=== PATIENT | female | born 1945 | race Caucasian/White ===

== ENCOUNTER 2016-09-20 23:22 | Observation (INO) | payer OTHER, BC ==
[~2016-09-20] VITALS: Ht 162.6 cm; Wt 56.8 kg
[~2016-09-20 23:22] MED LIST: ASPIR-LOW81 MG PO; ATIVAN0.5 MG PO; CARDIZEM CD120 MG PO; CLOPIDOGREL75 MG PO; COZAAR50 MG PO; FUROSEMIDE20 MG PO; KLOR-CON 1010 MEQ PO; LEVAQUIN500 MG PO; PEPCID20 MG PO; PRAVASTATIN SOD40 MG PO; PREDNISONE10 MG PO; PREDNISONE20 MG PO; PREVACID30 MG PO; PROVENTIL HFA6.7 GM IH; ROXICODONE5 MG PO; SPIRIVA1 INHALATI IH; SYMBICORT60 INHALAT IH; TOPICORT 0.25%60 GM PO; TYLENOL EXTRA500 MG PO; ZYRTEC10 M3 PO
[2016-09-21 00:07] LABS: HEMATOCRIT 35.4 % (36.0-46.0); MCH 28.3 PG (29.0-34.0); MCHC 31.4 G/DL (30.0-36.0); MCV 90.3 FL (83-99); MEAN PLAT.VOLUME 9.3 uM^3 (9.5-12.4); PLATELET COUNT 255 K/uL (156-360); RBC DIS.WIDTH-CV 12.4 % (11.8-14.6); RBC DIS.WIDTH-SD 40.4 % (39-53); RED BLOOD COUNT 3.92 M/uL (3.80-5.20); WHITE BLOOD COUNT 6.6 K/uL (4.1-10.2)
[2016-09-21 00:28] LABS: CHLORIDE 98 mEq/L (99-109); POTASSIUM 3.5 mEq/L (3.7-5.4); SODIUM 138 mEq/L (136-147)
[2016-09-21 00:30] LABS: GLUCOSE 183 mg/dL (70-99)
[2016-09-21 00:32] LABS: ANION GAP 5 MEQ/L (2-14); TOTAL BILIRUBIN 0.3 mg/dL (0.0-1.0)
[2016-09-21 00:34] LABS: ALKALINE PHOSPHATASE 48 IU/L (3-129); GFR ESTIMATE (CALCULATED) > 59 mL/min/
[2016-09-21 00:35] LABS: UREA NITROGEN (BUN) 8 mg/dL (9-23)
[2016-09-21 00:37] LABS: LIPASE 25 U/L (1.0-51.0)
[2016-09-21 00:46] LABS: TROP-I INTERPRETATION NEGATIVE; TROPONIN-I < 0.01 ng/mL (0.0-0.30)
[2016-09-21 01:59] LABS: ADD MIUA? NO; BILIRUBIN NEGATIVE; BLOOD NEGATIVE; COLOR YELLOW ((YELLOW)); GLUCOSE (STRIP) 50; KETONES NEGATIVE; LEUKOCYTES NEGATIVE; NITRITE NEGATIVE; PROTEIN (STRIP) NEGATIVE; UCUL ADDED? NO; UROBILINOGEN 0.2 MG/DL (0.2-1.0)
[2016-09-21 05:00] VITALS: BP 186/85
[2016-09-21 09:50] VITALS: BP 174/86
[2016-09-21 12:29] VITALS: BP 160/82
[2016-09-21] MEDS ORDERED: AZITHROMYCIN500 M1 PO (12:38)
== END 2016-09-21 14:26 | disposition home or self-care (01) ==
LOC: EME 23:22 → EDOF 09-21 03:11 → 5WEST 09-21 04:20
PROVIDERS: Emergency Medicine
DX: J44.1 Chronic obstructive pulmonary disease with (acute) exacerbation (principal); J44.0 Chronic obstructive pulmonary disease with (acute) lower respiratory infection; J20.9 Acute bronchitis, unspecified; E87.6 Hypokalemia; R07.89 Other chest pain; R73.9 Hyperglycemia, unspecified; Z99.81 Dependence on supplemental oxygen; I10 Essential (primary) hypertension; E78.5 Hyperlipidemia, unspecified; D64.9 Anemia, unspecified; K21.9 Gastro-esophageal reflux disease without esophagitis; F41.9 Anxiety disorder, unspecified; F32.9 Major depressive disorder, single episode, unspecified; Z87.891 Personal history of nicotine dependence; Z85.118 Personal history of other malignant neoplasm of bronchus and lung; F45.8 Other somatoform disorders
CPT/HCPCS: 71020; 80053; 81003; 83690; 83880; 84484; 85027; 93005; 94640; 99202; 99281; 99285; G0378; J0360; J1940; J3475